=== PATIENT | male | born 1955 | race Caucasian/White ===

== ENCOUNTER 2024-07-19 11:53 | Emergency (ER) | payer MEDICARE, BC ==
[~2024-07-19] VITALS: Ht 182.9 cm; Wt 101.8 kg
[2024-07-19] MEDS ORDERED: NS 1,000 ML IV ONE (12:00)
[2024-07-19 12:12] LABS: BASO # 0.04 K/mm3 (0.02-0.10); EOS # 0.15 K/mm3 (0.04-0.40); EOS % 2.4 % (0.0-4.0); HEMATOCRIT 42.1 % (42.0-52.0); HEMOGLOBIN 14.1 g/dL (13.5-18.0); LYMPH# 1.31 K/mm3 (1.50-4.00); MEAN CELL VOLUME 86 fl (78-100); MEAN CORPUSCULAR HEMOGLOBIN 29 pg (27-31); MEAN CORPUSCULAR HGB CONC 34 g/dL (33-37); MEAN PLATELET VOLUME 9.9 fl (7.4-10.4); MONO # 0.52 K/mm3 (0.20-0.80); NEU # 4.22 K/mm3 (1.40-6.50); PLATELET COUNT 336 K/mm3 (130-400); RED BLOOD COUNT 4.89 M/mm3 (4.20-5.60); WHITE BLOOD COUNT 6.3 K/mm3 (4.8-10.8)
[2024-07-19 12:17] LABS: ALBUMIN 4.3 g/dL (3.4-4.8)
[2024-07-19 12:18] LABS: SODIUM 135 mmol/L (136-145)
[2024-07-19 12:19] LABS: CALCIUM 9.3 mg/dL (8.3-10.5)
[2024-07-19 12:20] LABS: GLUCOSE 205 mg/dL (75-110); TOTAL PROTEIN 7.3 g/dL (6.2-8.1)
[2024-07-19 12:21] LABS: CARBON DIOXIDE 22 mmol/L (23-31)
[2024-07-19 12:22] LABS: TOTAL BILIRUBIN 0.4 mg/dL (0.2-1.2)
[2024-07-19 12:25] LABS: AST-SGOT 14 U/L (5-34)
[2024-07-19 12:27] LABS: ALT/SGPT 17 U/L (0-55)
[2024-07-19 12:56] LABS: TROPONIN-I < 0.030 ng/mL (0.00-0.033)
[2024-07-19] MEDS ORDERED: Ketorolac 30 MG/ML VIAL IV ONE (13:00)
[2024-07-19 13:25] VITALS: BP 144/79
== END 2024-07-19 13:24 | disposition home or self-care (01) ==
LOC: ED 11:53
PROVIDERS: Family Medicine
DX: R00.2 Palpitations (principal); R07.89 Other chest pain; M41.9 Scoliosis, unspecified; E03.9 Hypothyroidism, unspecified; I10 Essential (primary) hypertension; E66.9 Obesity, unspecified; Z79.890 Hormone replacement therapy; Z68.30 Body mass index [BMI] 30.0-30.9, adult
CPT/HCPCS: J1885

== ENCOUNTER → 2024-07-19 | Outpatient (CLI) | payer MEDICARE, BC | LOC: AMSURD 13:25 | DX: R00.2 Palpitations (principal) ==